=== PATIENT | male | born 1935 | race Caucasian/White ===

== ENCOUNTER → 2017-08-07 | Outpatient (REF) | payer MEDICARE, OTHER ==
[~2017-08-07] MED LIST: ACE325 PO; ASPI-1471 PO; ASPI-715 PO; ATOR10TA24 PO; BIS10S PR; CALC500T76 PO; CEPH-13 PO; CHOL200025 PO; FISH OIL1 CAP PO; GLUC-198 PO; HYDR-385 PO; IRON18TA2 PO; LEVO25TA61 PO; LEVO50TA80 PO; LEVO75TA73 PO; LOR7.5/325 PO; LUTE20CA11 PO; MAGN30TA5 PO; METO-259 PO; MOM PO; MULT-1335 PO; MULT-820 PO; OMEP40CA48 PO; OXY10 PO; PAN20 PO; PANT40TA65 PO; TUM500 PO; WAR5 PO; ZINC30CA2 PO; [UNRECOGNIZED DRUG - CODE] PO
== END ==
LOC: ZZSENDIN 12:00
PROVIDERS: ATTEND Urology
DX: C61 Malignant neoplasm of prostate (principal)
CPT/HCPCS: 88305; 88344

== ENCOUNTER 2017-09-03 00:11 | Day surgery (SDC) | payer OTHER, MEDICARE ==
[~2017-09-03] VITALS: Ht 185.4 cm; Wt 85.3 kg
--- NOTE | 2017-09-03 07:41 | Post Operative Progress Note ---
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
--- NOTE | 2017-09-03 07:42 | Short(Outpt) Discharge Summary ---
Discharge Summary Reason for Hosp/Final Diag: (1) Dysphagia Status: Acute Hospital Course & Plan: egd with balloon dilation to 20 mm Departure Discharge to: Home Discharge Instructions Home Meds Reported Medications Levothyroxine Sodium (LEVOTHYROXINE SODIUM) 75 Mcg Tablet, 75 MCG PO QDAY, TAB 08/30/17 Omeprazole (OMEPRAZOLE) 40 Mg Capsule.dr, 40 MG PO QDAY Y for GAS/HEARTBURN, CAP 06/27/17 Aspirin (ASPIR 81) 81 Mg Tablet.dr, 81 MG PO QDAY, TAB 03/26/17 Atorvastatin Calcium (LIPITOR) 10 Mg Tablet, 1 TAB PO QDAY, TAB 08/12/15 Discontinued Reported Medications Levothyroxine Sodium (LEVOTHYROXINE SODIUM) 25 Mcg Tablet, 25 MCG PO QDAY 03/26/17 Diet: Regular Activity: As Tolerated JEOVANY SANCHEZ MD September 03, 2017 07:42
[2017-09-03] MEDS ORDERED: LIDOCAINE MPF 1% 5 ML VIAL ONE (07:54)
[2017-09-03] MEDS ORDERED: PROPOFOL EMUL(*) 10MG/ML 20 ML 40 ML ONE (07:54)
[2017-09-03 08:54] VITALS: BP 149/106
[2017-09-03] MEDS ORDERED: LIDOCAINE/SOD BICARB 8.4% SYR ID ONE (09:10)
[2017-09-03] MEDS ORDERED: NORMOSOL R SOLN(*) 1000 ML BAG 1,000 ML IV PRN (09:10)
[2017-09-03 10:04] VITALS: BP 116/83
[2017-09-03 10:34] VITALS: BP 120/84
[2017-09-03 11:10] VITALS: BP 161/109
[2017-09-03 11:12] VITALS: BP 140/105
--- NOTE | 2017-09-03 15:17 | OPERATIVE REPORT 1 ---
EVENT DATE: September 03, 2017 SURGEON: Xavier Scruggs MD ANESTHESIOLOGIST: Gianluca Oseguera MD ANESTHESIA: Sedation. PREOPERATIVE DIAGNOSIS Dysphagia. POSTOPERATIVE DIAGNOSIS Distal esophageal ring. PROCEDURE PERFORMED Esophagogastroduodenoscopy with balloon dilatation to 20 mm. DESCRIPTION OF PROCEDURE Patient was placed in the left lateral decubitus position and given IV sedation. Flexible scope was inserted. The esophagus distended nicely. No ulceration, inflammation, or tumor was noted. GE junction was at 40 cm. He had a ring present there, but it was not tight. Scope easily passed through. We went through the stomach which was empty, through the pylorus and second and third portions of the duodenum which were normal. Duodenal bulb was normal. Pylorus was normal. Antrum was normal. Body of stomach was normal. Scope was retroflexed. There were no fundic lesions. I could not identify a hiatal hernia. Scope was then slowly withdrawn. We placed a balloon across the GE junction, did progressive dilatation to 20 mm. I let the balloon down. There was a little bit of bleeding, and the scope was then removed. Patient tolerated the procedure well. No apparent complications. [facility]
== END 2017-09-03 11:41 | disposition home or self-care (01) ==
LOC: OR 00:11
PROVIDERS: ATTEND Surgery
DX: K22.2 Esophageal obstruction (principal)
CPT/HCPCS: 43249; C1726; J2001; J2704

== ENCOUNTER → 2017-09-10 | Outpatient (CLI) | payer OTHER, MEDICARE ==
--- NOTE | 2017-09-10 15:43 | RADIOLOGY IMAGING REPORT ---
FACILITY: [facility] PATIENT NAME: Hipolito Brand : 1935 MR: [id number] V: [id number] EXAM DATE: ORDERING PHYSICIAN: INDIRA SEVILLA TECHNOLOGIST: Location: [facility] [place] Patient: Hipolito Brand : 1935 Visit/Account:[id number] Date of Sevice: 09/10/2017 2 VIEWS CHEST INDICATION: Cough for two months COMPARISON: Examination the chest May 2016 FINDINGS: Cardiac silhouette is within normal limits. Stable appearance dual-lead left hemithorax pacer. No e vidence of new infiltrate, consolidation, effusion or pneumothorax. Bones are without acute finding. Mild multilevel spondylosis is seen of the spine. IMPRESSION: 1. No acute cardiopulmonary process. Report Dictated By: Yosi Dow MD at 09/10/2017 3:38 PM Report E-Signed By: Ysoi Dow MD at 09/10/2017 3:39 PM WSN:[id number]
== END ==
LOC: RAD 15:13
PROVIDERS: ATTEND Nurse Practitioner Family
DX: R05 Cough (principal); I95.89 Other hypotension; Z77.090 Contact with and (suspected) exposure to asbestos
CPT/HCPCS: 71046

== ENCOUNTER → 2017-09-19 | Outpatient (CLI) | payer MEDICARE, OTHER ==
--- NOTE | 2017-09-19 14:56 | RADIOLOGY IMAGING REPORT ---
FACILITY: [facility] - [place] PATIENT NAME: Hipolito Brand : 1935 MR: [id number] V: [id number] EXAM DATE: ORDERING PHYSICIAN: SABI YORK TECHNOLOGIST: Location: [facility] Patient: Hipolito Brand : 1935 Visit/Account:[id number] Date of Sevice: 09/19/2017 Exam type: ANKLE BRACHIAL INDICES History: Numbness and tingling of both feet Comparison: None. Findings: The segmental pressure in the right brachial artery is 71 mmHg. Segmental pressure in the right dors mady pedis artery is 152 mmHg in the right posterior tibial artery 259 mmHg. The segmental pressure in the right great toe was 63 mmHg. The AMANUEL on the right is 2.64 and the TBI on the right is 0.64 Segmental pressure in the left brachial artery is 98 mmHg. The segmental pressure in the left dorsal is pedis artery is 164 mmHg. The segmental pressure in the left posterior tibial artery is 241 mmHg. The segmental pressure in left great toe is 95 mmHg. The AMANUEL on the left is 2.46 and the TBI in th e left is 0.97. The PVR waveforms are unremarkable bilaterally IMPRESSION: 1. AMANUEL on the right 2.64 and TBI in the right 0.64 AMANUEL on the left 2.46 and TBI on the left 0.97 Report Dictated By: Delmy Aguilar MD at 09/19/2017 2:51 PM Report E-Signed By: Delmy Aguilar MD at 09/19/2017 2:53 PM WSN:[email or web address]
== END ==
LOC: US 07:11
PROVIDERS: ATTEND Internal Medicine Cardiovascular Disease
DX: R20.0 Anesthesia of skin (principal)
CPT/HCPCS: 93922

== ENCOUNTER → 2018-05-29 | Outpatient (CLI) | payer MEDICARE, OTHER ==
--- NOTE | 2018-05-29 14:19 | EKG ---
FACILITY: [facility] - [place] PATIENT NAME: MARISSA CAMPOS : [id number] MR: [id number] V: [id number] EXAM DATE: ORDERING PHYSICIAN: ELEONORA AG TECHNOLOGIST: ZACH Cage Reason : CP Blood Pressure : / mmHG Vent. Rate : 069 BPM Atrial Rate : 069 BPM P-R Int : 162 ms QRS Dur : 168 ms QT Int : 424 ms P-R-T Axes : 058 076 054 degrees QTc Int : 454 ms Electronic atrial pacemaker Abnormal ECG No previous ECGs available Confirmed by LLIIA SUE ([id number]) on 05/29/2018 3:04:17 PM Referred By: Confirmed By:LILIA SUE
== END ==
LOC: RESP 14:07
PROVIDERS: ATTEND Nurse Practitioner Family
DX: R94.31 Abnormal electrocardiogram [ECG] [EKG] (principal)
CPT/HCPCS: 93005

== ENCOUNTER → 2018-07-16 | Outpatient (CLI) | payer MEDICARE, OTHER ==
[~2018-07-16] MED LIST changes: +REGADENOSON 0.4 MG/5 ML SYR ONE
--- NOTE | 2018-07-16 16:08 | RADIOLOGY IMAGING REPORT ---
FACILITY: [facility] - [place] PATIENT NAME: Hipolito Brand : 1935 MR: [id number] V: [id number] EXAM DATE: ORDERING PHYSICIAN: ELEONORA AG TECHNOLOGIST: Location: [facility] [place] Patient: Hipolito Brand : 1935 Visit/Account:[id number] Date of Sevice: 07/16/2018 EXAMINATION: Single isotope SPECT imaging with Regadenoson infusion and gated SPECT imaging. DATE OF EXAMINATION: July 16, 2018. DATE OF INTERPRETATION: July 16, 2018. REQUESTING PHYSICIAN: ELEONORA AG. INDICATION: The patient is a 83-year-old male evaluated for CAD. PROCEDURE: After informed consent the patient received an intravenous injection of 12.3 mCi of Tc-99 m sestamibi followed at an appropriate time interval by rest imaging. The patient then subsequently received an intravenous infusion of 0.4 mg of Regadenoson per protocol without complication. Resting heart rate was 69 bpm with a peak heart rate of 81 bpm. Blood pressure at rest was 120 / 79 and fol lowing infusion was 120 / 79. Baseline EKG demonstrates normal sinus rhythm with nonspecific ST-T ab normalities. There were no EKG changes of ischemia following infusion. Symptoms were nonspecific. The patient then received an intravenous injection of 31.9 mCi of Tc-99m sestamibi followed by stress imaging. RAW DATA: Examination of the summed raw data revealed a good quality study. MYOCARDIAL PERFUSION: The tomographic images demonstrate normal perfusion both at rest and at stress . GATED IMAGES: The gated images demonstrate the ejection fraction is calculated at 77% with normal wa ll motion. IMPRESSION: 1. Baseline EKG shows normal sinus rhythm with nonspecific ST and T-wave abnormalities. There are no changes with stress. 2. Normal myocardial perfusion scan. 3. Normal if not hyperdynamic LV systolic function; LVEF 77%. 4. Based on the results of this exam, the patient appears to be at low risk for future cardiovascular events. Report Dictated By: Forrest Sauceda MD at 07/16/2018 4:01 PM Report E-Signed By: Forrest Sauceda MD at 07/16/2018 4:03 PM WSN:[id number]
--- NOTE | 2018-07-17 06:32 | RT STRESS TEST REPORT ---
FACILITY: [facility] - [place] PATIENT NAME: MARISSA CAMPOS : [id number] MR: [id number] V: [id number] EXAM DATE: ORDERING PHYSICIAN: ELEONORA AG TECHNOLOGIST: Garret Acquisition Time: 2018-07-16 14:16:18 Total Exercise Time: 00:01:00 Test Indications: SOB, CHEST PAIN Medications: SEE NUCLEAR MED SHEET Protocol: LEXISCAN Max HR: 081 BPM 59% of Pred: 136 BPM Max BP: 120/079 mmHG Max Work Load: 1.0 METS Confirmed by CODI ROMAN ([id number]) on 07/17/2018 6:32:23 AM Referred By: Overread By: CODI ROMAN
== END ==
LOC: NUC 00:24
PROVIDERS: ATTEND Nurse Practitioner Family
DX: R07.9 Chest pain, unspecified (principal); R06.00 Dyspnea, unspecified
CPT/HCPCS: 78452; 93017; A9500; J2785